=== PATIENT | female | born 1975 | race Caucasian/White ===

== ENCOUNTER → 2016-09-22 09:41 | Outpatient (CLI) | payer MEDICARE ==
[2010-05-20 07:48] VITALS: BMI 33.5
[~2016-09-22 09:41] MED LIST: BENTYL10 MG PO; CARAFATE1 G PO; FLOVENT DISKU100 MCG INH; GLUCOPHAGE500 MG PO; HYDROCODON-ACE1 EAC7 PO; NEURONTIN 300300 MG PO; NITROQUICK0.4 MG SL; OMEPRAZOLE40 MG PO; PROVENTIL HFA6.7 GM INH
== END | disposition home or self-care (01) ==
LOC: D.RAD 09:41
DX: K21.9 Gastro-esophageal reflux disease without esophagitis (principal)

== ENCOUNTER 2016-10-22 11:53 | Emergency (ER) | payer MEDICARE ==
[2010-05-20 07:48] VITALS: BMI 33.5
[~2016-10-22 11:53] MED LIST changes: -BENTYL10 MG PO; -CARAFATE1 G PO; -FLOVENT DISKU100 MCG INH; -HYDROCODON-ACE1 EAC7 PO; -NEURONTIN 300300 MG PO; -NITROQUICK0.4 MG SL; -OMEPRAZOLE40 MG PO; -PROVENTIL HFA6.7 GM INH
[2016-10-22 13:13] LABS: BASOPHILS 0.2 % (0.0-2.0); EOSINOPHILS 4.3 % (0-7); HEMOGLOBIN 8.8 g/dL (12-16); IMMATURE GRANULOCYTES 0.2 % (0-5); LYMPHOCYTES 34.2 % (15-50); MCH 22.1 pg (26.0-34.0); MCHC 29.3 g/dL (31.0-37.0); MCV 75.4 fL (80.0-100.0); MEAN PLATELET VOLUME 10.1 fL (7.4-10.4); MONOCYTES 7.5 % (2-11); NEUTROPHILS 53.6 % (40-80); PLATELET COUNT 212 10x3/uL (130-400); RBC 3.98 10x6/uL (4.00-5.40); RDW 16.6 % (11.5-14.5); WBC 5.9 10x3/uL (4.8-10.8)
[2016-10-22 13:28] LABS: ALBUMIN 3.5 g/dL (3.4-5.0); ALKALINE PHOSPHATASE 118 U/L (46-116); ALT (SGPT) 19 U/L (10-68); AMYLASE - SERUM 56 U/L (25-115); BILIRUBIN - TOTAL 0.19 mg/dL (0.2-1.3); CALC OSMOLALITY 287 mosm/kg (275-300); CALCIUM 9.2 mg/dL (8.5-10.1); CARBON DIOXIDE 33.3 mmol/L (21.0-32.0); CHLORIDE - SERUM 105 mmol/L (98-107); CREATININE - SERUM 0.8 mg/dL (0.6-1.3); GLUCOSE 105 mg/dL (74-106); LIPASE 152 U/L (73-393); POTASSIUM - SERUM 4.5 mmol/L (3.5-5.1); SODIUM 144 mmol/L (136-145); UREA NITROGEN 15 mg/dL (7-18); eGFR NON AFRICAN AMERICAN 83 mL/min (90-120)
[2016-10-22 13:40] LABS: APPEARANCE CLOUDY (CLEAR); BILIRUBIN NEGATIVE (NEGATIVE); COLOR STRAW (YELLOW); GLUCOSE NEGATIVE (NEGATIVE); KETONE NEGATIVE (NEGATIVE); LEUKOCYTE ESTERASE NEGATIVE (NEGATIVE); NITRITE NEGATIVE (NEGATIVE); PROTEIN NEGATIVE (NEGATIVE); UROBILINOGEN NORMAL (NORMAL)
[2016-10-22 13:43] LABS: AMORPHOUS SEDIMENT >1+ /lpf (NONE SEEN); BACTERIA NONE SEEN /hpf (NONE SEEN); EPITHELIAL CELLS NSEEN /hpf (0-5); RED CELLS - URINE 0-5 /hpf (0-5); WHITE CELLS - URINE NSEEN /hpf (0-5)
== END 2016-10-22 16:37 | disposition home or self-care (01) ==
LOC: D.ER 11:53
PROVIDERS: Family Medicine
DX: R10.13 Epigastric pain (principal); R04.2 Hemoptysis; K22.10 Ulcer of esophagus without bleeding; E11.9 Type 2 diabetes mellitus without complications; D64.9 Anemia, unspecified

== ENCOUNTER 2016-11-08 09:07 | Day surgery (SDC) | payer MEDICARE ==
[~2016-11-08] VITALS: Ht 162.6 cm; Wt 73.6 kg
[2016-11-08] VITALS (9 sets, daily range): BP systolic 105–136; BP diastolic 57–97; Ht 162.6 cm; Wt 73.6 kg
[2016-11-08] MEDS ORDERED: OMEPRAZOLE40 MG PO (11:09)
[2016-11-08] MEDS ORDERED: CARAFATE1 G PO (11:11)
[2016-11-08] MEDS ORDERED: BENTYL10 MG PO (11:12)
[2016-11-08] MEDS ORDERED: NEURONTIN 300300 MG PO (11:12)
[2016-11-08] MEDS ORDERED: NITROQUICK0.4 MG SL (11:12)
[2016-11-08 11:13] LABS: HEMATOCRIT 30.1 % (36.0-48.0); HEMOGLOBIN 8.9 g/dL (12-16); MCH 21.8 pg (26.0-34.0); MCHC 29.6 g/dL (31.0-37.0); MCV 73.8 fL (80.0-100.0); MEAN PLATELET VOLUME 9.3 fL (7.4-10.4); RBC 4.08 10x6/uL (4.00-5.40); RDW 16.2 % (11.5-14.5)
[2016-11-08] MEDS ORDERED: FLOVENT DISKU100 MCG INH (11:13)
[2016-11-08] MEDS ORDERED: PROVENTIL HFA6.7 GM INH (11:14)
[2016-11-08 11:20] LABS: ANION GAP 9.6 mmol/L (8-16); CALCIUM 8.9 mg/dL (8.5-10.1); CARBON DIOXIDE 30.2 mmol/L (21.0-32.0); CREATININE - SERUM 0.9 mg/dL (0.6-1.3); POTASSIUM - SERUM 3.8 mmol/L (3.5-5.1)
--- NOTE | 2016-11-08 19:00 | NUR ---
PATIENT SLEEPING SUPINE IN BED. HOB 40 DEGREES. RR EVEN AND UNLABORED. 0 S/S OF DISTRESS. O2 @ 2L VIA NC. IV'S TO LEFT AND RIGHT WRIST PATENT WITH NO REDNESS OR SWELLING. LAP SITES X6 TO ABD. BOYFRIEND AT BEDSIDE. SRX2. BED LOW. CALL LIGHT WITHIN REACH.
--- NOTE | 2016-11-08 20:00 | NUR ---
PATIENT AMBULATING IN HALLWAY.
--- NOTE | 2016-11-08 21:05 | NUR ---
PATIENT BACK IN BED. INITIATED MORPHINE TECHNICAL AGRONOMIST PER ORDER. COULD NOT UNHOOK TUBING TO IV IN LEFT WRIST TO ATTACH TECHNICAL AGRONOMIST TUBING, SO DC'D IV WITH CATHETER TIP INTACT. FLUIDS NOW INFUSING THROUGH RIGHT WRIST. ATTACHED CO2 MONITOR. NO OTHER NEEDS AT THIS TIME.
[2016-11-09] VITALS: BP 113/53
[2016-11-09 04:00] VITALS: BP 128/74
--- NOTE | 2016-11-09 04:21 | NUR ---
PATIENT SLEEPING WITH NO DISTRESS NOTED. CALL LIGHT WITHIN REACH.
[2016-11-09 06:18] LABS: BASOPHILS 0.2 % (0.0-2.0); EOSINOPHILS 0.5 % (0-7); HEMATOCRIT 27.5 % (36.0-48.0); HEMOGLOBIN 8.2 g/dL (12-16); IMMATURE GRANULOCYTES 0.2 % (0-5); LYMPHOCYTES 26.4 % (15-50); MCH 22.3 pg (26.0-34.0); MCHC 29.8 g/dL (31.0-37.0); MCV 74.7 fL (80.0-100.0); MEAN PLATELET VOLUME 9.4 fL (7.4-10.4); MONOCYTES 6.1 % (2-11); NEUTROPHILS 66.6 % (40-80); PLATELET COUNT 217 10x3/uL (130-400); RBC 3.68 10x6/uL (4.00-5.40); RDW 16.1 % (11.5-14.5); WBC 5.9 10x3/uL (4.8-10.8)
[2016-11-09 06:30] LABS: CALC OSMOLALITY 279 mosm/kg (275-300); CALCIUM 7.5 mg/dL (8.5-10.1); CARBON DIOXIDE 25.5 mmol/L (21.0-32.0); CHLORIDE - SERUM 108 mmol/L (98-107); CREATININE - SERUM 0.7 mg/dL (0.6-1.3); GLUCOSE 96 mg/dL (74-106); POTASSIUM - SERUM 3.7 mmol/L (3.5-5.1); SODIUM 141 mmol/L (136-145); UREA NITROGEN 9 mg/dL (7-18); eGFR NON AFRICAN AMERICAN > 90 mL/min (90-120)
--- NOTE | 2016-11-09 08:13 | OP ---
PATIENT NAME: ALIYAH DEXTER MEDICAL RECORD: [id number] :71 LOCATION:[id number] ADMISSION DATE:11/08/16 SURGEON: RADU SERRA MD DATE OF OPERATION: 11/08/2016 SURGEON: Radu Serra MD. PREOPERATIVE DIAGNOSIS: Gastroesophageal reflux disease with esophagitis. PROCEDURES: 1. Laparoscopic hiatal hernia repair. 2. Laparoscopic Ruslan fundoplication. ANESTHESIA: General. COMPLICATIONS: None. SPECIMENS: None. Case was clean. ESTIMATED BLOOD LOSS: 50 cc. OPERATIVE COURSE: After consent was obtained, the patient was taken to the operating room and placed in the supine position on the operating table. Next, general anesthesia was given via endotracheal intubation after a timeout was taken to confirm the correct patient and procedure. Abdomen was prepped and draped in typical sterile fashion. Local anesthetic was injected just above the umbilicus. A stab incision was made with an 11-blade scalpel. Using a 5-mm bladeless optical trocar, the abdomen was entered under direct laparoscopic vision. Adequate pneumoperitoneum was achieved. The abdominal cavity was inspected. No evidence of bowel injury. No evidence of bleeding. The patient was then placed in the steep reverse Trendelenburg position. At this time, all remaining trocars were placed after the administration of local anesthetic, 5-mm trocar and an 11-mm trocar in the right lateral quadrants, two 5-mm trocars in the left lateral quadrants, Roe retractor in the subxiphoid position. Roe retractor was placed in the left lobe, exposing the gastroesophageal junction. Next, the gastrohepatic ligament was opened using the Harmonic scalpel. This dissection was continued to the level of the right crura. The right crura was skeletonized. Dissection continued posterior to the esophagus until the left crura was identified. At this time, the short gastrics were taken along the proximal third of the cardia. This dissection continued to the level of the left crura and dissection was continued along the left crura posteriorly to anteriorly completing the circumferential dissection of the crura. The hernia sac was dissected out and removed. The mediastinum was bluntly dissected until approximately 4-5 cm of intra-abdominal esophagus were obtained. At this time, the diaphragmatic hiatus was closed using 0 polypropylene Stratafix suture. Once complete, the cardia of the stomach was passed posterior to the esophagus and was wrapped in a typical Ruslan fundoplication. It was sutured in place using 2-0 polydek nylon suture. At this time, the entire abdominal cavity was copiously irrigated and suctioned. Careful attention was paid to hemostasis. The wrap was intact. It was loose and instrument was able to be passed between the fundoplication in the anterior esophagus without difficulty. At this time, the Roe liver retractor was removed. Again, the abdominal cavity was inspected. No evidence of bowel OPERATIVE REPORT [id number] ALIYAH DEXTER injury. No evidence of bleeding. The 11-mm trocar sites were closed with 0 Vicryl suture in a Sarmad-Kamille suture passer under direct laparoscopic vision. Again, the abdomen was inspected. No evidence of bowel injury. No evidence of bleeding. At this time, all remaining instruments were removed. The abdomen was desufflated. Trocars were removed. Skin was closed with 4-0 Monocryl, Mastisol and Steri-Strips. At the end of the case, all needle and instrument counts were correct. No complications occurred. The patient was extubated and transferred to the PACU in stable condition. TRANSINT:[id number] Voice Confirmation ID: [id number] DOCUMENT ID: [id number] RADU SERRA MD at 0813 CC: [id number] DICTATION DATE: 11/08/16 1648 IT PROGRAM AUDITOR: 11/08/16 2345 ADM IN [place] [id number] [place] [address]
[2016-11-09 08:20] VITALS: BP 126/76
[2016-11-09] MEDS ORDERED: HYDROCODON-ACE1 EAC7 PO (08:49)
--- NOTE | 2016-11-09 10:00 | NUR ---
PATIENT AMBULATED IN THE [place] WITH CAR BUILDER. NO SIGNS OF DISTRESS NOTED. GAIT STEADY.
--- NOTE | 2016-11-09 10:41 | NUR ---
Patient Name: ALIYAH DEXTER Admission Status: Elective Accout number: [id number] Admission Date: 11-08-2016 : 1975 Admission Diagnosis: Attending: JOSE Current LOS: 1 Anticipated DC Date: 11-10-2016 Planned Disposition: Home Primary Insurance: MEDICARE A & B Discharge Planning Comments: CM MET WITH BETHEL (LAWANDA FERGUSON)-PATIENT WAS SLEEPING. BETHEL STATED THEIR L[facility] (PARTH DELGADO) WILL DRIVE THEM HOME AT DISCHARGE TODAY. THERE ARE 6 STEPS W/RAILS TO ENTER HOME AND NO STAIRS INSIDE. PATIENT IS INDEPENDENT WITH HER CARE AND HAS NO DME AT HOME. PATIENTS PCP IS AT [facility] IN [place] AND SHE SEES OBI BRADSHAW. PATIENTS PHARMACY IS [facility] IN [place]. BETHEL STATED THEY DID NOT NEED HH. PCP [facility] IN [place] [phone] LAWANDA (BETHEL) [phone] PARTH (CATHERINE) [phone] Stamp Pad Finisher: Ana Fajardo How many steps to enter\exit or inside your home? 6 W/RIALS 0 * PCP [facility] IN [place] [facility] BRAD[facility]W 0 * Pharmacy [facility] IN [place] [phone] * Preadmission Environment Home with Family 0 * ADLs Independent 0 * Equipment None 0 * List name and contact numbers for known caregivers / representatives who currently or will assist patient after discharge: PARTH DELGADO (LANDLORD) [phone] LAWANDA FERGUSON (BETHEL) [phone] 0 * Community resources currently utilized None 0 * Additional services required to return to the preadmission environment? Yes 0 * Can the patient safely return to the preadmission environment? Yes 0 * Has this patient been hospitalized within the prior 30 days at any hospital? No 0 Grand Total: 0
[2016-11-09 12:36] VITALS: BP 120/74
== END 2016-11-09 15:29 | disposition home or self-care (01) ==
LOC: D.SDCHOLD 09:07 → D.MS 09:07 → D.OPS 09:07 → EDSTATUS 12:15 → D.SDCHOLD 12:15 → D.MS 17:53 → D.OPS 11-09 15:29 → D.MS 11-09 15:29
PROVIDERS: Anesthesiology; Surgery
DX: K21.0 Gastro-esophageal reflux disease with esophagitis (principal); K44.9 Diaphragmatic hernia without obstruction or gangrene